=== PATIENT | male | born 1955 | race Caucasian/White ===

== ENCOUNTER 2020-01-05 07:42 | Emergency (ER) | payer MEDICARE, BC ==
[~2020-01-05] VITALS: Ht 182.9 cm; Wt 90.9 kg
[2020-01-05 07:55] VITALS: Ht 182.9 cm; Wt 90.9 kg
[2020-01-05] MEDS ORDERED: DOXYCYCLINE HY100 M2 PO (07:56)
[2020-01-05] MEDS ORDERED: [UNRECOGNIZED DRUG - REMARK] (07:56)
[2020-01-05 09:20] VITALS: BP 152/83
== END 2020-01-05 09:20 | disposition home or self-care (01) ==
LOC: D.ER 07:42
DX: S01.94XA Puncture wound with foreign body of unspecified part of head, initial encounter (principal); X58.XXXA Exposure to other specified factors, initial encounter